=== PATIENT | female | born 1940 | race Caucasian/White ===

== ENCOUNTER 2024-02-01 13:48 | Emergency (ER) | payer OTHER | END 2024-02-01 16:37 | disposition left against medical advice (07) | LOC: ER 14:00 | DX: M25.569 Pain in unspecified knee (principal); Z53.21 Procedure and treatment not carried out due to patient leaving prior to being seen by health care provider ==

== ENCOUNTER 2024-02-05 12:03 | Inpatient (IN) | payer OTHER ==
[~2024-02-05] VITALS: Ht 162.6 cm; Wt 84.4 kg
[2024-02-05] MEDS: KETOROLAC TROMETHAMINE INJ 30 MG/ML VIAL IM ONE (15:20)
[2024-02-05] MEDS: METHOCARBAMOL (750MG) 750 MG TABLET PO ONE (15:20)
[2024-02-05] MEDS ORDERED: TIZA4TAB5 PO ×2 (15:43→16:10)
[2024-02-05] MEDS ORDERED: ACETAMINOPHEN 325 MG TABLET ONE (16:10)
[2024-02-05] MEDS: ACETAMINOPHEN 325 MG TABLET PO ONE (16:22)
[2024-02-05] MEDS ORDERED: ALPRAZOLAM 0.25 MG TABLET ONE (17:23)
[2024-02-05] MEDS ORDERED: MORPHINE SULFATE INJ 2 MG/ML DISP.SYRIN ONE (17:23)
[2024-02-05] MEDS: MORPHINE SULFATE INJ 2 MG/ML DISP.SYRIN IV ONE (17:40)
[2024-02-05] MEDS: ALPRAZOLAM 0.25 MG TABLET PO ONE (17:40)
[2024-02-05] MEDS ORDERED: MAGNESIUM HYDROXIDE 30 ML UDC PO PRN (20:00)
[2024-02-05] MEDS ORDERED: Z GUARD REMEDY 4 OZ OINT TP PRN (20:00)
[2024-02-05 20:35] LABS: BASOPHILS % (AUTO) 0.5 % (0.0-2.0); EOSINOPHILS # (AUTO) 0.2 K/uL (0.0-0.7); EOSINOPHILS % (AUTO) 3.1 % (0.0-6.0); HEMATOCRIT 21 % (33-45); LYMPHOCYTES # (AUTO) 1.8 K/uL (0.8-4.8); LYMPHOCYTES % (AUTO) 25.5 % (20.0-44.0); MEAN CORPUSCULAR HEMOGLOBIN 22 PG (26.0-33.0); MEAN CORPUSCULAR HGB CONC 31 g/dl (31.0-36.0); MEAN CORPUSCULAR VOLUME 71 fL (82-100); MONOCYTES # (AUTO) 0.7 K/uL (0.1-1.30); MONOCYTES % (AUTO) 9.4 % (2.0-12.0); NEUTROPHILS # (AUTO) 4.4 K/uL (1.8-8.9); NEUTROPHILS % (AUTO) 61.5 % (43.0-81.0); PLATELET COUNT (AUTO) 305 K/uL (150-450); RED BLOOD CELL COUNT(AUTO) 2.95 MIL/uL (4.0-5.2); RED CELL DISTRIBUTION WIDTH 18.6 % (11.5-15.0); WHITE BLOOD COUNT (AUTO) 7.2 K/uL (4.3-11.0)
[2024-02-05 20:39] LABS: HEMOGLOBIN 6.4 g/dL (11.5-14.8)
[2024-02-05 20:44] LABS: ALBUMIN 2.7 g/dL (3.4-5.0); BILIRUBIN,TOTAL 0.1 mg/dL (0.2-1.0); CALCIUM, SERUM 8.6 mg/dL (8.5-10.1); CREATININE 1.2 mg/dL (0.6-1.3); MAGNESIUM 2.3 mg/dL (1.8-2.4); PHOSPHORUS 4.6 mg/dL (2.5-4.9); POTASSIUM 4.2 mmol/L (3.5-5.1)
[2024-02-05 20:55] LABS: EOSINOPHILS % (MANUAL) 2 % (0-4); LYMPHOCYTES % (MANUAL) 33 % (16-48); MONOCYTES % (MANUAL) 4 % (0-11.0); NEUTROPHILS % (MANUAL) 61 (42-76)
[2024-02-05 20:56] LABS: ANISOCYTOSIS 1+; HYPOCHROMASIA 1+; OVALOCYTES 1+; PLATELET ESTIMATE ADEQUATE; THYROID STIMULATING HORMONE 2.21 uIU/mL (0.358-3.74)
[2024-02-05 23:00] VITALS: BP 139/87; TEMP 98.8; O2SAT 98
[2024-02-05] MEDS: METHOCARBAMOL (500MG) 500 MG TABLET PO SCH (23:44)
[2024-02-05] MEDS: MAG HYDROX/AL HYDROX/SIMETH 30 ML UDC PO PRN (23:44)
[2024-02-06] VITALS (9 sets, daily range): BP systolic 119–145; BP diastolic 52–87; TEMP 97.7–98.8; O2SAT 92–98
[2024-02-06 07:17] LABS: CALCIUM, SERUM 8.5 mg/dL (8.5-10.1); CREATININE 1.1 mg/dL (0.6-1.3); MAGNESIUM 2.4 mg/dL (1.8-2.4); PHOSPHORUS 4.3 mg/dL (2.5-4.9); POTASSIUM 4.3 mmol/L (3.5-5.1)
[2024-02-06] MEDS ORDERED: LIOTHYRONINE SODIUM (25 MCG) 25 MCG TABLET PO SCH (07:30)
[2024-02-06 07:41] LABS: BASOPHILS % (AUTO) 0.4 % (0.0-2.0); EOSINOPHILS # (AUTO) 0.2 K/uL (0.0-0.7); EOSINOPHILS % (AUTO) 3.6 % (0.0-6.0); HEMATOCRIT 22 % (33-45); LYMPHOCYTES % (AUTO) 16.7 % (20.0-44.0); MEAN CORPUSCULAR HEMOGLOBIN 22 PG (26.0-33.0); MEAN CORPUSCULAR HGB CONC 30 g/dl (31.0-36.0); MEAN CORPUSCULAR VOLUME 71 fL (82-100); MONOCYTES # (AUTO) 0.7 K/uL (0.1-1.30); MONOCYTES % (AUTO) 10.5 % (2.0-12.0); NEUTROPHILS # (AUTO) 4.3 K/uL (1.8-8.9); NEUTROPHILS % (AUTO) 68.8 % (43.0-81.0); PLATELET COUNT (AUTO) 305 K/uL (150-450); RED BLOOD CELL COUNT(AUTO) 3.04 MIL/uL (4.0-5.2); WHITE BLOOD COUNT (AUTO) 6.2 K/uL (4.3-11.0)
[2024-02-06] MEDS: ACETAMINOPHEN 325 MG TABLET PO PRN (08:05)
[2024-02-06 08:30] LABS: HEMOGLOBIN 6.5 g/dL (11.5-14.8)
[2024-02-06] MEDS ORDERED: LOSARTAN POTASSIUM 50 MG TABLET PO SCH (09:00)
[2024-02-06] MEDS ORDERED: FERROUS SULFATE (325 MG) 325 MG/TAB TABLET PO SCH (09:00)
[2024-02-06] MEDS ORDERED: CHOLECALCIFEROL 1,000 UNIT TABLET (VIT D3) PO SCH (09:00)
[2024-02-06] MEDS ORDERED: GABAPENTIN 100 MG CAPSULE PO SCH (09:00)
[2024-02-06] MEDS ORDERED: CYANOCOBALAMIN 500 MCG TABLET PO SCH (09:00)
[2024-02-06] MEDS ORDERED: MELOXICAM 7.5 MG TABLET PO SCH (09:00)
[2024-02-06] MEDS ORDERED: AMLODIPINE BESYLATE 5 MG TABLET PO SCH (09:00)
[2024-02-06] MEDS ORDERED: BUPROPION XL 150 MG TAB.ER.24 PO SCH (09:00)
[2024-02-06] MEDS: LORAZEPAM 0.5 MG TABLET PO ONE (09:19)
[2024-02-06] MEDS: TRAMADOL HCL 50 MG TABLET PO PRN (09:50)
[2024-02-06] MEDS ORDERED: GUAIFENESIN/D-METHORPHAN HB 5 ML UDC PO PRN (10:00)
[2024-02-06] MEDS ORDERED: ONDANSETRON HCL 4 MG/5 ML SOLUTION PO PRN (10:00)
[2024-02-06] MEDS ORDERED: TRAMADOL HCL 50 MG TABLET PO PRN (10:00)
[2024-02-06] MEDS ORDERED: LOPERAMIDE HCL (2 MG CAP) 2 MG CAPSULE PO PRN ×2 (10:00)
[2024-02-06] MEDS ORDERED: BISACODYL SUPP (10 MG) 10 MG/SUPP.RECT SUPP.RECT RC PRN (10:00)
[2024-02-06] MEDS ORDERED: LORAZEPAM 0.5 MG TABLET PO PRN (10:00)
[2024-02-06] MEDS ORDERED: MAGNESIUM HYDROXIDE 30 ML UDC PO PRN (10:00)
[2024-02-06] MEDS ORDERED: ACETAMINOPHEN 325 MG TABLET PO PRN (10:00)
[2024-02-06 10:16] LABS: EOSINOPHILS % (MANUAL) 4 % (0-4); LYMPHOCYTES % (MANUAL) 16 % (16-48); MONOCYTES % (MANUAL) 8 % (0-11.0); NEUTROPHILS % (MANUAL) 72 (42-76)
[2024-02-06 10:17] LABS: ANISOCYTOSIS 1+; HYPOCHROMASIA 1+; OVALOCYTES 1+; PLATELET ESTIMATE ADEQUATE
[2024-02-06] MEDS ORDERED: ALEN70TA80 PO (10:54)
[2024-02-06] MEDS: MORPHINE SULFATE INJ 2 MG/ML DISP.SYRIN IV PRN (11:05)
[2024-02-06] MEDS ORDERED: FERR325T28 PO (11:05)
[2024-02-06] MEDS ORDERED: EZET10TA15 PO (11:05)
[2024-02-06] MEDS ORDERED: AMLO-212 PO (11:05)
[2024-02-06] MEDS ORDERED: MELO-105 PO (11:26)
[2024-02-06] MEDS ORDERED: BUPR300T52 PO (11:26)
[2024-02-06] MEDS ORDERED: BISA10SU61 RC (11:26)
[2024-02-06] MEDS ORDERED: LIOT25TA13 PO (11:26)
[2024-02-06] MEDS ORDERED: LISD40CA PO (11:26)
[2024-02-06] MEDS ORDERED: LOSA100T31 PO (11:26)
[2024-02-06] MEDS ORDERED: CHOL100062 PO (11:26)
[2024-02-06] MEDS ORDERED: ACET-3117 PO (11:26)
[2024-02-06] MEDS ORDERED: CYAN-24 PO (11:26)
[2024-02-06] MEDS ORDERED: MAG-135 PO (11:26)
[2024-02-06] MEDS ORDERED: GABA-532 PO (11:26)
[2024-02-06] MEDS ORDERED: FLUT16SP BNOSTRILS (11:26)
[2024-02-06] MEDS ORDERED: GUAI5SYR PO (11:35)
[2024-02-06] MEDS ORDERED: LOPE2TAB25 PO ×2 (11:35)
[2024-02-06] MEDS ORDERED: LORA-259 PO (11:35)
[2024-02-06] MEDS ORDERED: TRAM50TA2 PO (11:35)
[2024-02-06] MEDS ORDERED: MAGN400O21 PO (11:35)
[2024-02-06] MEDS ORDERED: ONDA4TAB11 PO (11:35)
[2024-02-06] MEDS ORDERED: EZETIMIBE 10 MG TABLET PO SCH (22:00)
[2024-02-06] MEDS ORDERED: Thiamine 100 MG in IV D5W 50 ML IV SCH (23:00)
[2024-02-06] MEDS: PREGABALIN 25 MG CAPSULE PO SCH (23:31)
[2024-02-07] MEDS ORDERED: CYANOCOBALAMIN 1,000 MCG/ML VIAL ONE
[2024-02-07] MEDS: CYANOCOBALAMIN 1,000 MCG/ML VIAL IM ONE (00:29)
[2024-02-07] MEDS: HYDROMORPHONE 1 MG/1 ML DISP.SYRIN IV PRN (06:24)
[2024-02-07 08:00] VITALS: BP 113/61; TEMP 98.4; O2SAT 98
[2024-02-07] MEDS ORDERED: LORA-258 PO (08:52)
[2024-02-07] MEDS ORDERED: MAG30ORA PO (08:52)
[2024-02-07] MEDS ORDERED: MAGN400O6 PO (08:52)
[2024-02-07] MEDS: THIAMINE HCL 100 MG TABLET PO SCH (09:08)
[2024-02-07] MEDS: TRAMADOL HCL 50 MG TABLET PO PRN (10:10)
[2024-02-07] MEDS: LORAZEPAM 0.5 MG TABLET PO PRN (10:39)
[2024-02-07] MEDS ORDERED: LORAZEPAM 0.5 MG TABLET PO PRN (11:30)
[2024-02-07] MEDS ORDERED: BISACODYL SUPP (10 MG) 10 MG/SUPP.RECT SUPP.RECT RC PRN (11:30)
[2024-02-07] MEDS ORDERED: Medication Not On Formulary EA (Acetaminophen 650 MG) PO PRN (11:30)
[2024-02-07] MEDS: CHOLECALCIFEROL 1,000 UNIT TABLET (VIT D3) PO SCH (12:25)
[2024-02-07] MEDS: BUPROPION XL 150 MG TAB.ER.24 PO SCH (12:26)
[2024-02-07] MEDS: CYANOCOBALAMIN 500 MCG TABLET PO SCH (12:26)
[2024-02-07] MEDS ORDERED: CELE100C PO (12:33)
[2024-02-07] MEDS ORDERED: PREG100C PO (12:33)
[2024-02-07 13:15] LABS: IRON, SERUM 16 ug/dl (50-175); TOTAL IRON BINDING CAPACITY 444 ug/dl (250-450)
[2024-02-07 13:17] LABS: CALCIUM, SERUM 8.4 mg/dL (8.5-10.1); MAGNESIUM 2.6 mg/dL (1.8-2.4); PHOSPHORUS 3.6 mg/dL (2.5-4.9); POTASSIUM 4.2 mmol/L (3.5-5.1)
[2024-02-07 13:28] LABS: FERRITIN 16 ng/mL (8-388)
[2024-02-07 13:42] LABS: BASOPHILS % (AUTO) 0.6 % (0.0-2.0); EOSINOPHILS # (AUTO) 0.3 K/uL (0.0-0.7); EOSINOPHILS % (AUTO) 3.5 % (0.0-6.0); HEMATOCRIT 25 % (33-45); HEMOGLOBIN 8.1 g/dL (11.5-14.8); LYMPHOCYTES # (AUTO) 1.1 K/uL (0.8-4.8); LYMPHOCYTES % (AUTO) 14.4 % (20.0-44.0); MEAN CORPUSCULAR HEMOGLOBIN 24 PG (26.0-33.0); MEAN CORPUSCULAR HGB CONC 33 g/dl (31.0-36.0); MEAN CORPUSCULAR VOLUME 74 fL (82-100); MONOCYTES # (AUTO) 0.7 K/uL (0.1-1.30); MONOCYTES % (AUTO) 9.1 % (2.0-12.0); NEUTROPHILS # (AUTO) 5.5 K/uL (1.8-8.9); NEUTROPHILS % (AUTO) 72.4 % (43.0-81.0); PLATELET COUNT (AUTO) 302 K/uL (150-450); RED BLOOD CELL COUNT(AUTO) 3.35 MIL/uL (4.0-5.2); RED CELL DISTRIBUTION WIDTH 20.9 % (11.5-15.0); WHITE BLOOD COUNT (AUTO) 7.6 K/uL (4.3-11.0)
[2024-02-07] MEDS: SOD FERRIC GLUC 125 MG in IV NS 0.9% 100 ML IV SCH (14:41)
[2024-02-07] MEDS: IV LR 1000 ML 1,000 ML IV PRN (15:14)
[2024-02-07 15:34] LABS: BILIRUBIN,DIRECT 0.1 mg/dL (0.0-0.2); BILIRUBIN,TOTAL 0.2 mg/dL (0.2-1.0)
[2024-02-07 16:00] VITALS: BP 136/60; TEMP 97.3; O2SAT 99
[2024-02-07] MEDS: GABAPENTIN 100 MG CAPSULE PO SCH (16:32)
[2024-02-07] MEDS: TIZANIDINE HCL 4 MG TABLET PO SCH (16:32)
[2024-02-07 20:39] VITALS: BP 126/53; TEMP 98.4; O2SAT 96
[2024-02-08 08:00] VITALS: BP 112/59; TEMP 98.2; O2SAT 95
[2024-02-08] MEDS: MELOXICAM 7.5 MG TABLET PO SCH (08:21)
[2024-02-08] MEDS: EZETIMIBE 10 MG TABLET PO SCH (08:21)
[2024-02-08] MEDS: FERROUS SULFATE (325 MG) 325 MG/TAB TABLET PO SCH (08:22)
[2024-02-08] MEDS: LIOTHYRONINE SODIUM (25 MCG) 25 MCG TABLET PO SCH (08:28)
[2024-02-08] MEDS: FLUTICASONE PROPIONATE 16 GM BOTTLE NS SCH (08:29)
[2024-02-08] MEDS ORDERED: PREGABALIN 25 MG CAPSULE PO SCH (13:00)
[2024-02-08 16:00] VITALS: BP 135/55; TEMP 98.1; O2SAT 97
[2024-02-08 17:27] LABS: BASOPHILS % (AUTO) 0.4 % (0.0-2.0); EOSINOPHILS # (AUTO) 0.2 K/uL (0.0-0.7); EOSINOPHILS % (AUTO) 2.3 % (0.0-6.0); HEMATOCRIT 25 % (33-45); HEMOGLOBIN 7.7 g/dL (11.5-14.8); LYMPHOCYTES # (AUTO) 1.7 K/uL (0.8-4.8); LYMPHOCYTES % (AUTO) 21.6 % (20.0-44.0); MEAN CORPUSCULAR HEMOGLOBIN 24 PG (26.0-33.0); MEAN CORPUSCULAR HGB CONC 31 g/dl (31.0-36.0); MEAN CORPUSCULAR VOLUME 75 fL (82-100); NEUTROPHILS % (AUTO) 62.7 % (43.0-81.0); PLATELET COUNT (AUTO) 284 K/uL (150-450); RED BLOOD CELL COUNT(AUTO) 3.26 MIL/uL (4.0-5.2); RED CELL DISTRIBUTION WIDTH 21.1 % (11.5-15.0)
[2024-02-08 18:29] LABS: ANISOCYTOSIS 2+; OVALOCYTES 1+
[2024-02-08 20:00] VITALS: BP_SYST 109; BP_SYST 120; BP_DIAS 38; BP_DIAS 60; TEMP 97.9; O2SAT 95
[2024-02-09 07:04] LABS: BASOPHILS % (AUTO) 0.2 % (0.0-2.0); EOSINOPHILS # (AUTO) 0.2 K/uL (0.0-0.7); EOSINOPHILS % (AUTO) 3.2 % (0.0-6.0); HEMATOCRIT 25 % (33-45); HEMOGLOBIN 7.9 g/dL (11.5-14.8); LYMPHOCYTES # (AUTO) 1.4 K/uL (0.8-4.8); LYMPHOCYTES % (AUTO) 19.8 % (20.0-44.0); MEAN CORPUSCULAR HEMOGLOBIN 24 PG (26.0-33.0); MEAN CORPUSCULAR HGB CONC 31 g/dl (31.0-36.0); MEAN CORPUSCULAR VOLUME 76 fL (82-100); MONOCYTES # (AUTO) 0.8 K/uL (0.1-1.30); MONOCYTES % (AUTO) 11.6 % (2.0-12.0); NEUTROPHILS # (AUTO) 4.5 K/uL (1.8-8.9); NEUTROPHILS % (AUTO) 65.2 % (43.0-81.0); PLATELET COUNT (AUTO) 295 K/uL (150-450); RED BLOOD CELL COUNT(AUTO) 3.34 MIL/uL (4.0-5.2); RED CELL DISTRIBUTION WIDTH 22.2 % (11.5-15.0)
[2024-02-09 07:09] LABS: FOLIC ACID 11.5 ng/mL (>3.0)
[2024-02-09 07:21] LABS: MAGNESIUM 2.1 mg/dL (1.8-2.4); PHOSPHORUS 4.6 mg/dL (2.5-4.9); POTASSIUM 3.9 mmol/L (3.5-5.1)
[2024-02-09 07:39] LABS: CALCIUM, SERUM 8.3 mg/dL (8.5-10.1)
[2024-02-09 08:00] VITALS: BP 102/76; TEMP 97.8; O2SAT 97
[2024-02-09 08:11] LABS: HAPTOGLOBIN 186 mg/dL (41-333); IMMUNOGLOBULIN A, SERUM 78 mg/dL (64-422); IMMUNOGLOBULIN G, SERUM 590 mg/dL (586-1602); IMMUNOGLOBULIN M, SERUM 176 mg/dL (26-217)
[2024-02-09 12:07] LABS: FREE KAPPA LT CHAINS SERUM 22.1 mg/L (3.3-19.4); FREE LAMBDA LT CHAIN SERUM 18.2 mg/L (5.7-26.3); KAPPA/LAMBDA RATIO SERUM 1.21 (0.26-1.65)
[2024-02-09 16:00] VITALS: BP 129/52; TEMP 98.6; O2SAT 98
[2024-02-09 20:00] VITALS: BP 133/50; TEMP 98.1; O2SAT 95
[2024-02-10 08:00] VITALS: BP 153/56; TEMP 98.5; O2SAT 97
[2024-02-10 09:06] LABS: *SPE ALPHA-1-GLOBULIN 0.3 g/dL (0.0-0.4); *SPE ALPHA-2-GLOBULIN 0.8 g/dL (0.4-1.0); *SPE GLOBULIN, TOTAL 2.9 g/dL (2.2-3.9); *SPE M-SPIKE Not Observed g/dL (Not Observed); *SPE PROTEIN TOTAL 5.9 g/dL (6.0-8.5); *SPEGAMMA GLOBULIN 0.7 g/dL (0.4-1.8)
[2024-02-10 09:50] LABS: BASOPHILS % (AUTO) 0.4 % (0.0-2.0); EOSINOPHILS # (AUTO) 0.2 K/uL (0.0-0.7); EOSINOPHILS % (AUTO) 2.9 % (0.0-6.0); HEMATOCRIT 24 % (33-45); HEMOGLOBIN 7.6 g/dL (11.5-14.8); LYMPHOCYTES # (AUTO) 1.2 K/uL (0.8-4.8); LYMPHOCYTES % (AUTO) 14.1 % (20.0-44.0); MEAN CORPUSCULAR HEMOGLOBIN 24 PG (26.0-33.0); MEAN CORPUSCULAR HGB CONC 32 g/dl (31.0-36.0); MEAN CORPUSCULAR VOLUME 76 fL (82-100); MONOCYTES # (AUTO) 0.8 K/uL (0.1-1.30); MONOCYTES % (AUTO) 8.9 % (2.0-12.0); NEUTROPHILS # (AUTO) 6.3 K/uL (1.8-8.9); NEUTROPHILS % (AUTO) 73.7 % (43.0-81.0); PLATELET COUNT (AUTO) 273 K/uL (150-450); RED BLOOD CELL COUNT(AUTO) 3.15 MIL/uL (4.0-5.2); RED CELL DISTRIBUTION WIDTH 22.5 % (11.5-15.0); WHITE BLOOD COUNT (AUTO) 8.5 K/uL (4.3-11.0)
[2024-02-10 10:01] LABS: CALCIUM, SERUM 8.4 mg/dL (8.5-10.1); CREATININE 1.1 mg/dL (0.6-1.3); MAGNESIUM 2.1 mg/dL (1.8-2.4); PHOSPHORUS 3.6 mg/dL (2.5-4.9); POTASSIUM 3.9 mmol/L (3.5-5.1)
[2024-02-10 16:00] VITALS: BP 145/55; TEMP 97.7; O2SAT 97
[2024-02-10 20:00] VITALS: BP 135/53; TEMP 98.3; O2SAT 96
[2024-02-11 07:33] LABS: BASOPHILS % (AUTO) 0.5 % (0.0-2.0); EOSINOPHILS # (AUTO) 0.3 K/uL (0.0-0.7); EOSINOPHILS % (AUTO) 3.5 % (0.0-6.0); HEMATOCRIT 24 % (33-45); HEMOGLOBIN 7.6 g/dL (11.5-14.8); LYMPHOCYTES # (AUTO) 1.7 K/uL (0.8-4.8); LYMPHOCYTES % (AUTO) 19.6 % (20.0-44.0); MEAN CORPUSCULAR HEMOGLOBIN 25 PG (26.0-33.0); MEAN CORPUSCULAR HGB CONC 32 g/dl (31.0-36.0); MEAN CORPUSCULAR VOLUME 78 fL (82-100); MONOCYTES # (AUTO) 0.8 K/uL (0.1-1.30); MONOCYTES % (AUTO) 9.8 % (2.0-12.0); NEUTROPHILS # (AUTO) 5.7 K/uL (1.8-8.9); NEUTROPHILS % (AUTO) 66.6 % (43.0-81.0); PLATELET COUNT (AUTO) 269 K/uL (150-450); RED BLOOD CELL COUNT(AUTO) 3.12 MIL/uL (4.0-5.2); RED CELL DISTRIBUTION WIDTH 23.1 % (11.5-15.0); WHITE BLOOD COUNT (AUTO) 8.5 K/uL (4.3-11.0)
[2024-02-11 08:00] VITALS: BP 125/62; TEMP 98.4; O2SAT 97
[2024-02-11 10:32] LABS: ANISOCYTOSIS 1+; PLATELET ESTIMATE ADEQUATE
[2024-02-11] MEDS ORDERED: CT SWABBABLE VALVE TRANS SET 1 EA INFUS.SET MC ONE (10:33)
[2024-02-11] MEDS ORDERED: IV NS 0.9% 250 ML IV ONE (10:33)
[2024-02-11] MEDS ORDERED: IOHEXOL-300 100 ML VIAL IV ONE (10:33)
[2024-02-11] MEDS: PREGABALIN 100 MG CAPSULE PO SCH (13:38)
[2024-02-11 16:00] VITALS: BP 109/91; TEMP 97.7; O2SAT 93
[2024-02-11] MEDS: ENSURE ENLIVE CHOC 237 ML CAN PO SCH (17:32)
[2024-02-11 20:00] VITALS: BP 110/51; TEMP 97.7; O2SAT 95
[2024-02-12 08:23] VITALS: BP 149/82; TEMP 98.2; O2SAT 99
[2024-02-12] MEDS: CALCIUM CARBONATE 500 MG TAB.CHEW PO PRN (15:38)
[2024-02-12 15:54] VITALS: BP 132/98; TEMP 98.1; O2SAT 100
[2024-02-12] MEDS: HYDROCODONE/APAP 10/325MG TABLET PO PRN (16:37)
[2024-02-12 20:00] VITALS: BP 123/61; TEMP 97.7; O2SAT 93
[2024-02-13] MEDS ORDERED: ALENDRONATE 70 MG TABLET PO SCH (06:30)
[2024-02-13 08:12] VITALS: BP 150/88; TEMP 98.2; O2SAT 97
[2024-02-13] MEDS: ONDANSETRON HCL/PF 4 MG/2 ML VIAL IVP PRN (10:02)
[2024-02-13] MEDS: LORAZEPAM 0.5 MG TABLET PO PRN (10:03)
[2024-02-13 16:05] VITALS: BP 118/52; TEMP 98.3; O2SAT 94
[2024-02-13 20:00] VITALS: BP 106/43; TEMP 98.1; O2SAT 95
[2024-02-14 03:00] VITALS: BP 118/68; TEMP 97.7; O2SAT 98
[2024-02-14 07:30] VITALS: BP 119/43; TEMP 98.2; O2SAT 96
[2024-02-14 11:48] VITALS: TEMP 98.2
[2024-02-15 05:07] LABS: *HGBFRC HEMOGLOBIN A 97.6 % (96.4-98.8); *HGBFRC HEMOGLOBIN A2 2.4 % (1.8-3.2)
== END 2024-02-14 16:48 | disposition home health service (06) | DRG 812 ==
LOC: ER 12:08 → MED 22:27
PROVIDERS: ADMIT Nurse Practitioner Family; ATTEND Student in an Organized Health Care Education/Training Program
PROC: 30233N1 Transfusion of Nonautologous Red Blood Cells into Peripheral Vein, Percutaneous Approach (ICD-10-PCS; principal; 2024-02-06)
DX: D50.9 Iron deficiency anemia, unspecified (principal); E44.1 Mild protein-calorie malnutrition; F33.9 Major depressive disorder, recurrent, unspecified; F44.9 Dissociative and conversion disorder, unspecified; E88.09 Other disorders of plasma-protein metabolism, not elsewhere classified; F29 Unspecified psychosis not due to a substance or known physiological condition; E03.9 Hypothyroidism, unspecified; E66.9 Obesity, unspecified; E78.5 Hyperlipidemia, unspecified; I10 Essential (primary) hypertension; G62.9 Polyneuropathy, unspecified; K59.09 Other constipation; M19.90 Unspecified osteoarthritis, unspecified site; M81.0 Age-related osteoporosis without current pathological fracture; K21.9 Gastro-esophageal reflux disease without esophagitis; F90.9 Attention-deficit hyperactivity disorder, unspecified type; R26.9 Unspecified abnormalities of gait and mobility; Z68.31 Body mass index [BMI] 31.0-31.9, adult; M79.662 Pain in left lower leg; R73.9 Hyperglycemia, unspecified; Z79.891 Long term (current) use of opiate analgesic; M48.07 Spinal stenosis, lumbosacral region; M54.16 Radiculopathy, lumbar region; F41.1 Generalized anxiety disorder; M65.862 Other synovitis and tenosynovitis, left lower leg; F11.10 Opioid abuse, uncomplicated; Z79.899 Other long term (current) drug therapy
CPT/HCPCS: 36415; 72131-TC; 73552; 73564-TC; 73590-TC; 73600-TC; 73700-TC; 73701-TC; 73721-TC; 80048-TC; 80076-TC; 82247-TC; 82248-TC; 82378; 82550-TC; 82607-TC; 82728-TC; 82784; 83010; 83090; 83540-TC; 83615-TC; 83735-TC; 83921; 84100-TC; 84155; 84165; 84443-TC; 85025-TC; 85045-TC; 86334; 86850-TC; 86880-TC; 93970-TC; 93971-TC; 97110-TC; 97112-TC; 97116-TC; 97530-TC; A4223; G0378; J1171; J1885; J2270; J2405; J2916; J3420; J7030; J7050; J7120; P9016; Q9967